=== PATIENT | male | born 1970 | race Caucasian/White ===

== ENCOUNTER 2018-07-31 18:07 | Emergency (ER) | payer BC ==
[~2018-07-31] VITALS: Ht 175.3 cm; Wt 83.9 kg
[2018-07-31 18:30] VITALS: BP_SYST 118
[2018-07-31] MEDS ORDERED: AZITHROMYCIN 250 MG TABLET PO ONE (20:15)
[2018-07-31] MEDS ORDERED: IBUPROFEN 600 MG TABLET PO ONE (20:15)
[2018-07-31 20:30] VITALS: BP_SYST 119
== END 2018-07-31 20:30 | disposition home or self-care (01) ==
LOC: SED 18:07
DX: R50.9 Fever, unspecified (principal); Z98.890 Other specified postprocedural states
CPT/HCPCS: 99283; Q0144